=== PATIENT | female | born 1950 | race Caucasian/White ===

== ENCOUNTER → 2016-03-04 | Outpatient (CLI) | payer MEDICARE, MEDICAID ==
[~2016-03-04] MED LIST: ACHD5005 PO; ALBU8.5H2 IH; AMIT25TA9 PO; ASPI-586 PO; DARI7.5T8 PO; FURO80TA3 PO; HYDR-34 PO; KCL10CCR PO; LIRA0.6P SQ; LORA10TA7 PO; LOVA40TA2 PO; MELO-195 PO; METF-380 PO; NF-TRA/ACE PO; OXYB5TAB PO; POTA10TA10 PO; QUIN20TA15 PO; RIZA10TA20 PO; ROPI1TAB PO; ROPI1TAB40 PO; RT-ADVAIR1 IH; TOPI50TA2 PO; TPR100T PO
== END ==
LOC: PREOP 05:44
PROVIDERS: ATTEND Surgery
DX: Z01.818 Encounter for other preprocedural examination (principal); Z12.11 Encounter for screening for malignant neoplasm of colon

== ENCOUNTER → 2016-03-15 | Outpatient (CLI) | payer MEDICARE, MEDICAID | LOC: PREOP 10:35 | PROVIDERS: ATTEND Surgery | DX: Z01.818 Encounter for other preprocedural examination (principal); Z12.11 Encounter for screening for malignant neoplasm of colon ==

== ENCOUNTER 2016-03-16 09:01 | Day surgery (SDC) | payer MEDICARE, MEDICAID ==
[~2016-03-16] VITALS: Ht 149.9 cm; Wt 93.0 kg
[2016-03-16] MEDS ORDERED: proPOfol 200 MG/20 ML (DIPRIVAN) VIAL IV ONE (09:33)
[2016-03-16] MEDS ORDERED: MIDAZOLAM 2 MG/2 ML (VERSED) VIAL ONE (09:33)
[2016-03-16] MEDS ORDERED: NS IV 1000 ML 1,000 ML ONE (09:37)
--- NOTE | 2016-03-16 09:48 | Progress Note-Pre Operative ---
Pre-Operative Progress Note H&P Reviewed The H&P was reviewed, patient examined and no changes noted. Date H&P Reviewed: Mar 16, 2016 Time H&P Reviewed: 09:48 Pre-Operative Diagnosis: family history colon cancer ELVA HINOJOSA DO Mar 16, 2016 09:48
[2016-03-16] MEDS ORDERED: NS IV 1000 ML 1,000 ML IV STA (10:00)
[2016-03-16 10:14] VITALS: BP 124/79
--- NOTE | 2016-03-16 10:39 | Discharge Inst-Simple/Standard ---
Discharge Inst-Standard Patient Instructions/Follow Up Plan of Care/Instructions/FU: Follow up with Dr. Porras as needed Repeat colonoscopy in 5 years or sooner if condition changes Activity as Tolerated: Yes Discharge Diet: No Restrictions JANET RODRIGUEZ APRN Mar 16, 2016 10:39
--- NOTE | 2016-03-16 10:40 | Progress Note-Post Operative ---
Post-Operative Progess Note Pre-Operative Diagnosis family history colon cancer Post-Operative Diagnosis normal colon Post-Op Procedure Note Date of Procedure: Mar 16, 2016 Name of Procedure: colonoscopy Procedure Note/Findings see note Anesthesia Type per quality improvement manager Estimated blood loss (mL): none Specimen(s) collected none ELVA HINOJOSA DO Mar 16, 2016 10:40
[2016-03-16 11:00] VITALS: BP 132/81
[2016-03-16 11:25] VITALS: BP 122/72
[2016-03-16 11:45] VITALS: BP 122/72
--- NOTE | 2016-03-17 10:52 | OPERATIVE REPORT ---
PROCEDURE PHYSICIAN: ELVA HINOJOSA DATE OF PROCEDURE: 03/16/2016 PREOPERATIVE DIAGNOSIS: Family history of colon cancer. POSTOPERATIVE DIAGNOSIS: Normal colon. PROCEDURE: Colonoscopy. SURGEON: Vern. ANESTHESIA: Per MACHINE ASSISTANT. ESTIMATED BLOOD LOSS: None. COMPLICATIONS: None. INDICATIONS: The patient is a 65-year-old female with family history of colon cancer. She understands the risks and benefits of the procedure and wished to proceed with the procedure. Consent was signed on the chart. PROCEDURE: The patient taken endoscopy suite, placed in left lateral recumbent position. Timeout was performed. Digital rectal exam was performed. There were no palpable polyps, masses or ulcerations. The scope was inserted in the rectum and advanced all way cecum with minimal difficulty. Prep was adequate. The scope was then slowly retracted back. There were no polyps, masses or ulcerations within the cecum, ascending, transverse, descending and sigmoid colon. The scope was continued be slowly retracted back into the rectum where it was also retroflexed noting no further pathology. The scope was returned to its normal position slowly withdrawn until completely removed noting no further pathology. The patient tolerated the procedure well without complication. She was taken to recovery room in stable condition. RECOMMENDATIONS: The patient will need repeat colonoscopy in 5 years due to family history of colon cancer. The patient if has any problems prior to that should be reevaluated at that time. Job ID: [id number] Dictated Date: 03/16/2016 10:42:06 Waste Reclaimer Date: 03/17/2016 10:48:58 / laine
== END 2016-03-16 11:50 | disposition home or self-care (01) ==
LOC: SDC 09:01
PROVIDERS: ATTEND Surgery
DX: Z12.11 Encounter for screening for malignant neoplasm of colon (principal); Z80.0 Family history of malignant neoplasm of digestive organs; E11.9 Type 2 diabetes mellitus without complications; Z79.84 Long term (current) use of oral hypoglycemic drugs
CPT/HCPCS: G0121; 82962

== ENCOUNTER → 2016-03-29 | Outpatient (CLI) | payer MEDICARE, MEDICAID ==
--- OUTSIDE RECORDS SUMMARY | 2016-03-29 12:26 | XMS REPORT | Continuity of Care Document ---
Author Author [facility] Address Unknown Phone Unavailable Allergies Active Description Code Type Severity Reaction Onset Reported/Identified Relationship to Patient Clinical Status Yes Norvasc 5 mg tablet Drug Allergy 04/05/2011 Yes Norvasc 5 mg tablet Drug Allergy N/A N/A 04/05/2011 Yes No Known Drug Allergies [id number] Drug Allergy Unknown N/ A 03/16/2016 Medications Problems Date Dx Coded Attending Type Code Diagnosis Diagnosed By 08/30/2007 HAMZAH KENT APRN 250.02 DIABETES MELLITUS POORLY CONTROLLED 08/30/2007 HAMZAH KENT APRN 789.00 COLIC INFANTILE 08/30/2007 HAMZAH KENT APRN 250.02 DIABETES MELLITUS POORLY CONTROLLED 08/30/2007 HAMZAH KENT APRN 789.00 COLIC INFANTILE 08/30/2007 250.02 DIABETES MELLITUS POORLY CONTROLLED 08/30/2007 789.00 COLIC INFANTILE 08/30/2007 250.02 DIABETES MELLITUS POORLY CONTROLLED 08/30/2007 789.00 COLIC INFANTILE 08/30/2007 250.02 DIABETES MELLITUS POORLY CONTROLLED 08/30/2007 789.00 COLIC INFANTILE 08/30/2007 ANIL CALL APRN 250.02 DIABETES MELLITUS POORLY CONTROLLED 08/30/2007 ANIL CALL APRN 789.00 COLIC INFANTILE 08/30/2007 HAMZAH KENT APRN 250.02 DIABETES MELLITUS POORLY CONTROLLED 08/30/2007 AHMZAH KENT APRN 789.00 COLIC INFANTILE 08/30/2007 ARIC SAEED MD 250.02 DIABETES MELLITUS POORLY CONTROLLED 08/30/2007 ARIC SAEED MD 789.00 COLIC INFANTILE 08/30/2007 250.02 DIABETES MELLITUS POORLY CONTROLLED 08/30/2007 789.00 COLIC INFANTILE 08/30/2007 250.02 DIABETES MELLITUS POORLY CONTROLLED 08/30/2007 789.00 COLIC INFANTILE 08/30/2007 250.02 DIABETES MELLITUS POORLY CONTROLLED 08/30/2007 789.00 COLIC INFANTILE 08/30/2007 250.02 DIABETES MELLITUS POORLY CONTROLLED 08/30/2007 789.00 COLIC INFANTILE 08/30/2007 250.02 DIABETES MELLITUS POORLY CONTROLLED 08/30/2007 789.00 COLIC INFANTILE 08/30/2007 AVELINA KENT APRNA S 250.02 DIABETES MELLITUS POORLY CONTROLLED 08/30/2007 AVELINA KENT APRNA S 789.00 COLIC INFANTILE 08/30/2007 AVELINA KENT APRNA S 250.02 DIABETES MELLITUS POORLY CONTROLLED 08/30/2007 AVELINA KENT APRNA S 789.00 COLIC INFANTILE 08/30/2007 AVELINA KENT APRNA S 250.02 DIABETES MELLITUS POORLY CONTROLLED 08/30/2007 AVELINA KENT APRNA S 789.00 COLIC INFANTILE 08/30/2007 ARIC SAEED MD 250.02 DIABETES MELLITUS POORLY CONTROLLED 08/30/2007 ARIC SAEED MD 789.00 COLIC INFANTILE 08/30/2007 ONEYDA ZAVALA ANIL MCCOYH 250.02 DIABETES MELLITUS POORLY CONTROLLED 08/30/2007 ONEYDA ZAVALA ANIL GOMEZ 789.00 COLIC INFANTILE 08/30/2007 AVELINA KENT APRNA S 250.02 DIABETES MELLITUS POORLY CONTROLLED 08/30/2007 AVELINA KENT APRNA S 789.00 COLIC INFANTILE 08/30/2007 AVELINA KENT APRNA S 250.02 DIABETES MELLITUS POORLY CONTROLLED 08/30/2007 AVELINA KENT APRNA S 789.00 COLIC INFANTILE 08/30/2007 AVELINA KENT APRNA S 250.02 DIABETES MELLITUS POORLY CONTROLLED 08/30/2007 JONELLE KENT APRNNDA S 789.00 COLIC INFANTILE 08/30/2007 AVELINA KENT APRNA S 250.02 DIABETES MELLITUS POORLY CONTROLLED 08/30/2007 AVELINA KENT APRNA S 789.00 COLIC INFANTILE 08/30/2007 BALTAZAR MCKEON APRN 250.02 DIABETES MELLITUS POORLY CONTROLLED 08/30/2007 BALTAZAR MCKEON APRN 789.00 COLIC INFANTILE 08/30/2007 BALTAZAR MCKEON APRN 250.02 DIABETES MELLITUS POORLY CONTROLLED 08/30/2007 JAYLENE MCKEON APRNETTE 789.00 COLIC INFANTILE 08/30/2007 JONELLE KENT APRNNDA S 250.02 DIABETES MELLITUS POORLY CONTROLLED 08/30/2007 YOLI ZAVALA HAMZAH S 789.00 COLIC INFANTILE 08/30/2007 YOLI ZAVALA HAMZAH S 250.02 DIABETES MELLITUS POORLY CONTROLLED 08/30/2007 YOLI ZAVALA HAMZAH S 789.00 COLIC INFANTILE 03/04/2008 JONELLE KENT APRNNDA S 250.00 DIABETES MELLITUS TYPE 2 03/04/2008 JONELLE KENT APRNNDA S 272.1 HYPERLIPOPROTEINEMIA TYPE IV 03/04/2008 JONELLE KENT APRNNDA S 250.00 DIABETES MELLITUS TYPE 2 03/04/2008 JONELLE KENT APRNNDA S 272.1 HYPERLIPOPROTEINEMIA TYPE IV 03/04/2008 250.00 DIABETES MELLITUS TYPE 2 03/04/2008 272.1 HYPERLIPOPROTEINEMIA TYPE IV 03/04/2008 250.00 DIABETES MELLITUS TYPE 2 03/04/2008 272.1 HYPERLIPOPROTEINEMIA TYPE IV 03/04/2008 250.00 DIABETES MELLITUS TYPE 2 03/04/2008 272.1 HYPERLIPOPROTEINEMIA TYPE IV 03/04/2008 ANIL CALL APRN 250.00 DIABETES MELLITUS TYPE 2 03/04/2008 ANIL CALL APRN 272.1 HYPERLIPOPROTEINEMIA TYPE IV 03/04/2008 JONELLE KENT APRNNDA S 250.00 DIABETES MELLITUS TYPE 2 03/04/2008 JONELLE KENT APRNNDA S 272.1 HYPERLIPOPROTEINEMIA TYPE IV 03/04/2008 ARIC SAEED MD 250.00 DIABETES MELLITUS TYPE 2 03/04/2008 ARIC SAEED MD 272.1 HYPERLIPOPROTEINEMIA TYPE IV 03/04/2008 250.00 DIABETES MELLITUS TYPE 2 03/04/2008 272.1 HYPERLIPOPROTEINEMIA TYPE IV 03/04/2008 250.00 DIABETES MELLITUS TYPE 2 03/04/2008 272.1 HYPERLIPOPROTEINEMIA TYPE IV 03/04/2008 250.00 DIABETES MELLITUS TYPE 2 03/04/2008 272.1 HYPERLIPOPROTEINEMIA TYPE IV 03/04/2008 250.00 DIABETES MELLITUS TYPE 2 03/04/2008 272.1 HYPERLIPOPROTEINEMIA TYPE IV 03/04/2008 250.00 DIABETES MELLITUS TYPE 2 03/04/2008 272.1 HYPERLIPOPROTEINEMIA TYPE IV 03/04/2008 YOLI IVEYN, HAMZAH S 250.00 DIABETES MELLITUS TYPE 2 03/04/2008 YOLI IVEYN, HAMZAH S 272.1 HYPERLIPOPROTEINEMIA TYPE IV 03/04/2008 YOLI IVEYN, HAMZAH S 250.00 DIABETES MELLITUS TYPE 2 03/04/2008 YOLI IVEYN, HAMZAH S 272.1 HYPERLIPOPROTEINEMIA TYPE IV 03/04/2008 YOLI ZAVALA, HAMZAH S 250.00 DIABETES MELLITUS TYPE 2 03/04/2008 YOLI ZAVALA, HAMZAH S 272.1 HYPERLIPOPROTEINEMIA TYPE IV 03/04/2008 ARIC SAEED MD 250.00 DIABETES MELLITUS TYPE 2 03/04/2008 ARIC SAEED MD 272.1 HYPERLIPOPROTEINEMIA TYPE IV 03/04/2008 ONEYDA ZAVALA ANIL PATRICIA 250.00 DIABETES MELLITUS TYPE 2 03/04/2008 ANIL CALL APRN 272.1 HYPERLIPOPROTEINEMIA TYPE IV 03/04/2008 YOLI ZAVALA, HAMZAH S 250.00 DIABETES MELLITUS TYPE 2 03/04/2008 YOLI ZAVALA, HAMZAH S 272.1 HYPERLIPOPROTEINEMIA TYPE IV 03/04/2008 YOLI ZAVALA, HAMZAH S 250.00 DIABETES MELLITUS TYPE 2 03/04/2008 YOLI ZAVALA, HAMZAH S 272.1 HYPERLIPOPROTEINEMIA TYPE IV 03/04/2008 YOLI IVEYN, HAMZAH S 250.00 DIABETES MELLITUS TYPE 2 03/04/2008 YOLI ZAVALA, HAMZAH S 272.1 HYPERLIPOPROTEINEMIA TYPE IV 03/04/2008 YOLI ZAVALA, HAMZAH S 250.00 DIABETES MELLITUS TYPE 2 03/04/2008 YOLI ZAVALA, HAMZAH S 272.1 HYPERLIPOPROTEINEMIA TYPE IV 03/04/2008 LINDA ZAVALA BALTAZAR 250.00 DIABETES MELLITUS TYPE 2 03/04/2008 BALTAZAR MCKEON APRN 272.1 HYPERLIPOPROTEINEMIA TYPE IV 03/04/2008 LINDA ZAVALA, BALTAZAR 250.00 DIABETES MELLITUS TYPE 2 03/04/2008 LINDA PIPE STRIPPER, BALTAZAR 272.1 HYPERLIPOPROTEINEMIA TYPE IV 03/04/2008 YOLI ZAVALA, HAMZAH S 250.00 DIABETES MELLITUS TYPE 2 03/04/2008 YOLI ZAVALA, HAMZAH S 272.1 HYPERLIPOPROTEINEMIA TYPE IV 03/04/2008 YOLI ZAVALA, HAMZAH S 250.00 DIABETES MELLITUS TYPE 2 03/04/2008 YOLI ZAVALA, HAMZAH S 272.1 HYPERLIPOPROTEINEMIA TYPE IV 06/06/2008 JONELLE KENT APRNNDA S 278.01 OBESITY MORBID 06/06/2008 AVELINA KENT APRNA S 782.3 DEPENDENT EDEMA DUE TO INACTIVITY 06/06/2008 JONELLE KENT APRNNDA S 278.01 OBESITY MORBID 06/06/2008 JONELLE KENT APRNNDA S 782.3 DEPENDENT EDEMA DUE TO INACTIVITY 06/06/2008 278.01 OBESITY MORBID 06/06/2008 782.3 DEPENDENT EDEMA DUE TO INACTIVITY 06/06/2008 278.01 OBESITY MORBID 06/06/2008 782.3 DEPENDENT EDEMA DUE TO INACTIVITY 06/06/2008 278.01 OBESITY MORBID 06/06/2008 782.3 DEPENDENT EDEMA DUE TO INACTIVITY 06/06/2008 ONEYDA ZAVALA ANIL MCCOYH 278.01 OBESITY MORBID 06/06/2008 ONEYDA ZAVALA ANIL GOMEZ 782.3 DEPENDENT EDEMA DUE TO INACTIVITY 06/06/2008 AVELINA KENT APRNA S 278.01 OBESITY MORBID 06/06/2008 AVELINA KENT APRNA S 782.3 DEPENDENT EDEMA DUE TO INACTIVITY 06/06/2008 ARIC SAEED MD 278.01 OBESITY MORBID 06/06/2008 ARIC SAEED MD 782.3 DEPENDENT EDEMA DUE TO INACTIVITY 06/06/2008 278.01 OBESITY MORBID 06/06/2008 782.3 DEPENDENT EDEMA DUE TO INACTIVITY 06/06/2008 278.01 OBESITY MORBID 06/06/2008 782.3 DEPENDENT EDEMA DUE TO INACTIVITY 06/06/2008 278.01 OBESITY MORBID 06/06/2008 782.3 DEPENDENT EDEMA DUE TO INACTIVITY 06/06/2008 278.01 OBESITY MORBID 06/06/2008 782.3 DEPENDENT EDEMA DUE TO INACTIVITY 06/06/2008 278.01 OBESITY MORBID 06/06/2008 782.3 DEPENDENT EDEMA DUE TO INACTIVITY 06/06/2008 JONELLE KENT APRNNDA S 278.01 OBESITY MORBID 06/06/2008 YOLI ZAVALA, HAMZAH S 782.3 DEPENDENT EDEMA DUE TO INACTIVITY 06/06/2008 JONELLE KENT APRNNDA S 278.01 OBESITY MORBID 06/06/2008 JONELLE EKNT APRNNDA S 782.3 DEPENDENT EDEMA DUE TO INACTIVITY 06/06/2008 JONELLE KENT APRNNDA S 278.01 OBESITY MORBID 06/06/2008 JONELLE KENT APRNNDA S 782.3 DEPENDENT EDEMA DUE TO INACTIVITY 06/06/2008 ARIC SAEED MD 278.01 OBESITY MORBID 06/06/2008 ARIC SAEED MD 782.3 DEPENDENT EDEMA DUE TO INACTIVITY 06/06/2008 ANIL CALL APRN 278.01 OBESITY MORBID 06/06/2008 ANIL CALL APRN 782.3 DEPENDENT EDEMA DUE TO INACTIVITY 06/06/2008 JONELLE KENT APRNNDA S 278.01 OBESITY MORBID 06/06/2008 JONELLE KENT APRNNDA S 782.3 DEPENDENT EDEMA DUE TO INACTIVITY 06/06/2008 JONELLE KENT APRNNDA S 278.01 OBESITY MORBID 06/06/2008 JONELLE KENT APRNNDA S 782.3 DEPENDENT EDEMA DUE TO INACTIVITY 06/06/2008 JONELLE KENT APRNNDA S 278.01 OBESITY MORBID 06/06/2008 JONELLE KENT APRNNDA S 782.3 DEPENDENT EDEMA DUE TO INACTIVITY 06/06/2008 JONELLE KENT APRNNDA S 278.01 OBESITY MORBID 06/06/2008 YOLI ZAVALA HAMZAH S 782.3 DEPENDENT EDEMA DUE TO INACTIVITY 06/06/2008 LINDA PIPE STRIPPER, BALTAZAR 278.01 OBESITY MORBID 06/06/2008 LINDA PIPE STRIPPER, BALTAZAR 782.3 DEPENDENT EDEMA DUE TO INACTIVITY 06/06/2008 LINDA PIPE STRIPPER, BALTAZAR 278.01 OBESITY MORBID 06/06/2008 LINDA PIPE STRIPPER, BALTAZAR 782.3 DEPENDENT EDEMA DUE TO INACTIVITY 06/06/2008 YOLI PIPE STRIPPER, HAMZAH S 278.01 OBESITY MORBID 06/06/2008 YOLI PIPE STRIPPER, HAMZAH S 782.3 DEPENDENT EDEMA DUE TO INACTIVITY 06/06/2008 YOLI PIPE STRIPPER, HAMZAH S 278.01 OBESITY MORBID 06/06/2008 YOLI PIPE STRIPPER, HAMZAH S 782.3 DEPENDENT EDEMA DUE TO INACTIVITY 09/12/2008 YOLI PIPE STRIPPER, HAMZAH S 401.9 ESSENTIAL HYPERTENSION 09/12/2008 YOLI PIPE STRIPPER, HAMZAH S 401.9 ESSENTIAL HYPERTENSION 09/12/2008 401.9 ESSENTIAL HYPERTENSION 09/12/2008 401.9 ESSENTIAL HYPERTENSION 09/12/2008 401.9 ESSENTIAL HYPERTENSION 09/12/2008 ANIL CALL APRN 401.9 ESSENTIAL HYPERTENSION 09/12/2008 YOLI PIPE STRIPPER, HAMZAH S 401.9 ESSENTIAL HYPERTENSION 09/12/2008 ARIC SAEED MD 401.9 ESSENTIAL HYPERTENSION 09/12/2008 401.9 ESSENTIAL HYPERTENSION 09/12/2008 401.9 ESSENTIAL HYPERTENSION 09/12/2008 401.9 ESSENTIAL HYPERTENSION 09/12/2008 401.9 ESSENTIAL HYPERTENSION 09/12/2008 401.9 ESSENTIAL HYPERTENSION 09/12/2008 YOLI PIPE STRIPPER, HAMZAH S 401.9 ESSENTIAL HYPERTENSION 09/12/2008 YOLI PIPE STRIPPER, HAMZAH S 401.9 ESSENTIAL HYPERTENSION 09/12/2008 YOLI PIPE STRIPPER, HAMZAH S 401.9 ESSENTIAL HYPERTENSION 09/12/2008 ARIC SAEED MD 401.9 ESSENTIAL HYPERTENSION 09/12/2008 ANIL CALL APRN 401.9 ESSENTIAL HYPERTENSION 09/12/2008 YOLI PIPE STRIPPER, HAMZAH S 401.9 ESSENTIAL HYPERTENSION 09/12/2008 YOLI PIPE STRIPPER, HAMZAH S 401.9 ESSENTIAL HYPERTENSION 09/12/2008 YOLI PIPE STRIPPER, HAMZAH S 401.9 ESSENTIAL HYPERTENSION 09/12/2008 YOLI PIPE STRIPPER, HAMZAH S 401.9 ESSENTIAL HYPERTENSION 09/12/2008 LINDA PIPE STRIPPER, BALTAZAR 401.9 ESSENTIAL HYPERTENSION 09/12/2008 LINDA PIPE STRIPPER, BALTAZAR 401.9 ESSENTIAL HYPERTENSION 09/12/2008 YOLI PIPE STRIPPER, HAMZAH S 401.9 ESSENTIAL HYPERTENSION 09/12/2008 YOLI PIPE STRIPPER, HAMZAH S 401.9 ESSENTIAL HYPERTENSION 12/17/2008 YOLI PIPE STRIPPER, HAMZAH S V04.81 Vaccines Prophylactic Need Against Influenza 12/17/2008 YOLI PIPE STRIPPER, HAMZAH S V04.81 Vaccines Prophylactic Need Against Influenza 12/17/2008 V04.81 Vaccines Prophylactic Need Against Influenza 12/17/2008 V04.81 Vaccines Prophylactic Need Against Influenza 12/17/2008 V04.81 Vaccines Prophylactic Need Against Influenza 12/17/2008 ONEYDA ZAVALA ANIL PATRICIA V04.81 Vaccines Prophylactic Need Against Influenza 12/17/2008 YOLI PIPE STRIPPER, HAMZAH S V04.81 Vaccines Prophylactic Need Against Influenza 12/17/2008 ARIC SAEED MD V04.81 Vaccines Prophylactic Need Against Influenza 12/17/2008 V04.81 Vaccines Prophylactic Need Against Influenza 12/17/2008 V04.81 Vaccines Prophylactic Need Against Influenza 12/17/2008 V04.81 Vaccines Prophylactic Need Against Influenza 12/17/2008 V04.81 Vaccines Prophylactic Need Against Influenza 12/17/2008 V04.81 Vaccines Prophylactic Need Against Influenza 12/17/2008 YOLI PIPE STRIPPER, HAMZAH S V04.81 Vaccines Prophylactic Need Against Influenza 12/17/2008 YOLI PIPE STRIPPER, HAMZAH S V04.81 Vaccines Prophylactic Need Against Influenza 12/17/2008 YOLI PIPE STRIPPER, HAMZAH S V04.81 Vaccines Prophylactic Need Against Influenza 12/17/2008 ARIC SAEED MD V04.81 Vaccines Prophylactic Need Against Influenza 12/17/2008 ANIL CALL APRN V04.81 Vaccines Prophylactic Need Against Influenza 12/17/2008 YOLI PIPE STRIPPER, HAMZAH S V04.81 VACCINES PROPHYLACTIC NEED AGAINST INFLUENZA 12/17/2008 YOLI PIPE STRIPPER, HAMZAH S V04.81 VACCINES PROPHYLACTIC NEED AGAINST INFLUENZA 12/17/2008 YOLI PIPE STRIPPER, HAMZAH S V04.81 VACCINES PROPHYLACTIC NEED AGAINST INFLUENZA 12/17/2008 YOLI PIPE STRIPPER, HAMZAH S V04.81 VACCINES PROPHYLACTIC NEED AGAINST INFLUENZA 12/17/2008 LINDA PIPE STRIPPER, BALTAZAR V04.81 VACCINES PROPHYLACTIC NEED AGAINST INFLUENZA 12/17/2008 LINDA PIPE STRIPPER, BALTAZAR V04.81 VACCINES PROPHYLACTIC NEED AGAINST INFLUENZA 12/17/2008 YOLI PIPE STRIPPER, HAMZAH S V04.81 VACCINES PROPHYLACTIC NEED AGAINST INFLUENZA 12/17/2008 YOLI ZAVALA, HAMZAH S V04.81 VACCINES PROPHYLACTIC NEED AGAINST INFLUENZA 03/19/2009 YOLI ZAVALA, HAMZAH S 459.81 VENOUS INSUFFICIENCY 03/19/2009 YOLI PIPE STRIPPER, HAMZAH S 709.9 SKIN LESIONS 03/19/2009 YOLI ZAVALA, HAMZAH S 780.50 SLEEP DISTURBANCE, UNSPECIFIED 03/19/2009 JONELLE KENT APRNNDA S 459.81 VENOUS INSUFFICIENCY 03/19/2009 YOLI ZAVALA, HAMZAH S 709.9 SKIN LESIONS 03/19/2009 YOLI ZAVALA, HAMZAH S 780.50 SLEEP DISTURBANCE, UNSPECIFIED 03/19/2009 459.81 VENOUS INSUFFICIENCY 03/19/2009 709.9 SKIN LESIONS 03/19/2009 780.50 SLEEP DISTURBANCE, UNSPECIFIED 03/19/2009 459.81 VENOUS INSUFFICIENCY 03/19/2009 709.9 SKIN LESIONS 03/19/2009 780.50 SLEEP DISTURBANCE, UNSPECIFIED 03/19/2009 459.81 VENOUS INSUFFICIENCY 03/19/2009 709.9 SKIN LESIONS 03/19/2009 780.50 SLEEP DISTURBANCE, UNSPECIFIED 03/19/2009 ONEYDA ZAVALA ANIL GOMEZ 459.81 VENOUS INSUFFICIENCY 03/19/2009 ONEYDA ZAVALA, ANIL GOMEZ 709.9 SKIN LESIONS 03/19/2009 ONEYDA ZAVALAANIL 780.50 SLEEP DISTURBANCE, UNSPECIFIED 03/19/2009 JONELLE KENT APRNNDA S 459.81 VENOUS INSUFFICIENCY 03/19/2009 JONELLE KENT APRNNDA S 709.9 SKIN LESIONS 03/19/2009 JONELLE KENT APRNNDA S 780.50 SLEEP DISTURBANCE, UNSPECIFIED 03/19/2009 ARIC SAEED MD 459.81 VENOUS INSUFFICIENCY 03/19/2009 ARIC SAEED MD 709.9 SKIN LESIONS 03/19/2009 ARIC SAEED MD 780.50 SLEEP DISTURBANCE, UNSPECIFIED 03/19/2009 459.81 VENOUS INSUFFICIENCY 03/19/2009 709.9 SKIN LESIONS 03/19/2009 780.50 SLEEP DISTURBANCE, UNSPECIFIED 03/19/2009 459.81 VENOUS INSUFFICIENCY 03/19/2009 709.9 SKIN LESIONS 03/19/2009 780.50 SLEEP DISTURBANCE, UNSPECIFIED 03/19/2009 459.81 VENOUS INSUFFICIENCY 03/19/2009 709.9 SKIN LESIONS 03/19/2009 780.50 SLEEP DISTURBANCE, UNSPECIFIED 03/19/2009 459.81 VENOUS INSUFFICIENCY 03/19/2009 709.9 SKIN LESIONS 03/19/2009 780.50 SLEEP DISTURBANCE, UNSPECIFIED 03/19/2009 459.81 VENOUS INSUFFICIENCY 03/19/2009 709.9 SKIN LESIONS 03/19/2009 780.50 SLEEP DISTURBANCE, UNSPECIFIED 03/19/2009 YOLI PIPE STRIPPER, HAMZAH S 459.81 VENOUS INSUFFICIENCY 03/19/2009 YOLI PIPE STRIPPER, HAMZAH S 709.9 SKIN LESIONS 03/19/2009 YOLI PIPE STRIPPER, HAMZAH S 780.50 SLEEP DISTURBANCE, UNSPECIFIED 03/19/2009 YOLI PIPE STRIPPER, HAMZAH S 459.81 VENOUS INSUFFICIENCY 03/19/2009 YOLI PIPE STRIPPER, HAMZAH S 709.9 SKIN LESIONS 03/19/2009 YOLI PIPE STRIPPER, HAMZAH S 780.50 SLEEP DISTURBANCE, UNSPECIFIED 03/19/2009 YOLI PIPE STRIPPER, HAMZAH S 459.81 VENOUS INSUFFICIENCY 03/19/2009 YOLI PIPE STRIPPER, HAMZAH S 709.9 SKIN LESIONS 03/19/2009 YOLI PIPE STRIPPER, HAMZAH S 780.50 SLEEP DISTURBANCE, UNSPECIFIED 03/19/2009 ARIC SAEED MD 459.81 VENOUS INSUFFICIENCY 03/19/2009 ARIC SAEED MD 709.9 SKIN LESIONS 03/19/2009 ARIC SAEED MD 780.50 SLEEP DISTURBANCE, UNSPECIFIED 03/19/2009 ANIL CALL APRN 459.81 VENOUS INSUFFICIENCY 03/19/2009 ONEYDA PIPE STRIPPERANIL Arita 709.9 SKIN LESIONS 03/19/2009 ONEYDA ZAVALA, ANIL PATRICIA 780.50 SLEEP DISTURBANCE, UNSPECIFIED 03/19/2009 YOLI PIPE STRIPPER, HAMZAH S 459.81 VENOUS INSUFFICIENCY 03/19/2009 YOLI PIPE STRIPPER, HAMZAH S 709.9 SKIN LESIONS 03/19/2009 YOLI ZAVALA, HAMZAH S 780.50 SLEEP DISTURBANCE, UNSPECIFIED 03/19/2009 YOLI PIPE STRIPPER, HAMZAH S 459.81 VENOUS INSUFFICIENCY 03/19/2009 YOLI PIPE STRIPPER, HAMZAH S 709.9 SKIN LESIONS 03/19/2009 YOLI PIPE STRIPPER, HAMZAH S 780.50 SLEEP DISTURBANCE, UNSPECIFIED 03/19/2009 YOLI PIPE STRIPPER, HAMZAH S 459.81 VENOUS INSUFFICIENCY 03/19/2009 YOLI PIPE STRIPPER, HAMZAH S 709.9 SKIN LESIONS 03/19/2009 YOLI PIPE STRIPPER, HAMZAH S 780.50 SLEEP DISTURBANCE, UNSPECIFIED 03/19/2009 YOLI PIPE STRIPPER, HAMZAH S 459.81 VENOUS INSUFFICIENCY 03/19/2009 YOLI PIPE STRIPPER, HAMZAH S 709.9 SKIN LESIONS 03/19/2009 YOLI PIPE STRIPPER, HAMZAH S 780.50 SLEEP DISTURBANCE, UNSPECIFIED 03/19/2009 LINDA PIPE STRIPPER, BALTAZAR 459.81 VENOUS INSUFFICIENCY 03/19/2009 LINDA PIPE STRIPPER, BALTAZAR 709.9 SKIN LESIONS 03/19/2009 LINDA PIPE STRIPPER, BALTAZAR 780.50 SLEEP DISTURBANCE, UNSPECIFIED 03/19/2009 LINDA PIPE STRIPPER, BALTAZAR 459.81 VENOUS INSUFFICIENCY 03/19/2009 LINDA PIPE STRIPPER, BALTAZAR 709.9 SKIN LESIONS 03/19/2009 LINDA PIPE STRIPPER, BALTAZAR 780.50 SLEEP DISTURBANCE, UNSPECIFIED 03/19/2009 YOLI PIPE STRIPPER, HAMZAH S 459.81 VENOUS INSUFFICIENCY 03/19/2009 YOLI PIPE STRIPPER, HAMZAH S 709.9 SKIN LESIONS 03/19/2009 YOLI PIPE STRIPPER, HAMZAH S 780.50 SLEEP DISTURBANCE, UNSPECIFIED 03/19/2009 YOLI PIPE STRIPPER, HAMZAH S 459.81 VENOUS INSUFFICIENCY 03/19/2009 YOLI PIPE STRIPPER, HAMZAH S 709.9 SKIN LESIONS 03/19/2009 YOLI PIPE STRIPPER, HAMZAH S 780.50 SLEEP DISTURBANCE, UNSPECIFIED 04/10/2009 YOLI PIPE STRIPPER, HAMZAH S 466.0 ACUTE BRONCHITIS 04/10/2009 YOLI PIPE STRIPPER, HAMZAH S 466.0 ACUTE BRONCHITIS 04/10/2009 466.0 ACUTE BRONCHITIS 04/10/2009 466.0 ACUTE BRONCHITIS 04/10/2009 466.0 ACUTE BRONCHITIS 04/10/2009 CALL PIPE STRIPPER, ANIL GOMEZ 466.0 ACUTE BRONCHITIS 04/10/2009 YOLI PIPE STRIPPER, HAMZAH S 466.0 ACUTE BRONCHITIS 04/10/2009 DARLIN ANDERSON, ARIC 466.0 ACUTE BRONCHITIS 04/10/2009 466.0 ACUTE BRONCHITIS 04/10/2009 466.0 ACUTE BRONCHITIS 04/10/2009 466.0 ACUTE BRONCHITIS 04/10/2009 466.0 ACUTE BRONCHITIS 04/10/2009 466.0 ACUTE BRONCHITIS 04/10/2009 YOLI PIPE STRIPPER, HAMZAH S 466.0 ACUTE BRONCHITIS 04/10/2009 YOLI PIPE STRIPPER, HAMZAH S 466.0 ACUTE BRONCHITIS 04/10/2009 YOLI PIPE STRIPPER, HAMZAH S 466.0 ACUTE BRONCHITIS 04/10/2009 DARLIN ANDERSON, ARIC 466.0 ACUTE BRONCHITIS 04/10/2009 ONEYDA PIPE STRIPPER, ANIL GOMEZ 466.0 ACUTE BRONCHITIS 04/10/2009 YOLI PIPE STRIPPER, HAMZAH S 466.0 ACUTE BRONCHITIS 04/10/2009 YOLI PIPE STRIPPER, HAMZAH S 466.0 ACUTE BRONCHITIS 04/10/2009 YOLI PIPE STRIPPER, HAMZAH S 466.0 ACUTE BRONCHITIS 04/10/2009 YOLI PIPE STRIPPER, HAMZAH S 466.0 ACUTE BRONCHITIS 04/10/2009 LINDA PIPE STRIPPER, BALTAZAR 466.0 ACUTE BRONCHITIS 04/10/2009 LINDA PIPE STRIPPER, BALTAZAR 466.0 ACUTE BRONCHITIS 04/10/2009 YOLI PIPE STRIPPER, HAMZAH S 466.0 ACUTE BRONCHITIS 04/10/2009 YOLI PIPE STRIPPER, HAMZAH S 466.0 ACUTE BRONCHITIS 08/12/2009 YOLI PIPE STRIPPER, HAMZAH S 919.0 ABRASION UNSPECIFIED 08/12/2009 YOLI PIPE STRIPPER, HAMZAH S V06.1 DTP/Dtap, SJTRHRUDZB-EMUBMED-NEJHDLSIO COMBINED 08/12/2009 YOLI PIPE STRIPPER, HAMZAH S 919.0 ABRASION UNSPECIFIED 08/12/2009 YOLI PIPE STRIPPER, HAMZAH S V06.1 DTP/Dtap, RYTWHTJALZ-CXSZXCG-LPUOXLOCA COMBINED 08/12/2009 919.0 ABRASION UNSPECIFIED 08/12/2009 V06.1 DTP/Dtap, GGIIMWGWOT-HOFJVKD-YTKSUYHGR COMBINED 08/12/2009 919.0 ABRASION UNSPECIFIED 08/12/2009 V06.1 DTP/Dtap, KHWIBURNDC-FPMSQRX-MWABZRKLO COMBINED 08/12/2009 919.0 ABRASION UNSPECIFIED 08/12/2009 V06.1 DTP/Dtap, YTERPRJKJJ-USYDHGB-VBZFZIZSQ COMBINED 08/12/2009 ONEYDA PIPE STRIPPER, ANIL GOMEZ 919.0 ABRASION UNSPECIFIED 08/12/2009 CALL PIPE STRIPPER, ANIL GOMEZ V06.1 DTP/Dtap, DIPHTHERIA-TETANUS- PERTUSSIS COMBINED 08/12/2009 AVELINA KENT APRNA S 919.0 ABRASION UNSPECIFIED 08/12/2009 HAMZAH KENT APRN S V06.1 DTP/Dtap, GVZEODDHZI-JOBQUXS-KGQRETZKT COMBINED 08/12/2009 ARIC SAEED MD 919.0 ABRASION UNSPECIFIED 08/12/2009 ARIC SAEED MD V06.1 DTP/Dtap, ULJLURBKPV-XMQHNSI-QYZXEHNLO COMBINED 08/12/2009 919.0 ABRASION UNSPECIFIED 08/12/2009 V06.1 DTP/Dtap, FPFFWHELIE-ZZPHODS-GBQQIAVLI COMBINED 08/12/2009 919.0 ABRASION UNSPECIFIED 08/12/2009 V06.1 DTP/Dtap, BCSPUSFCIP-EDNMVBG-JLWIJGICJ COMBINED 08/12/2009 919.0 ABRASION UNSPECIFIED 08/12/2009 V06.1 DTP/Dtap, KTWQNMUSZN-AVKUOJO-RVZAWYKCC COMBINED 08/12/2009 919.0 ABRASION UNSPECIFIED 08/12/2009 V06.1 DTP/Dtap, TBPERIXHOV-CCDYITD-XBYRBVVUZ COMBINED 08/12/2009 919.0 ABRASION UNSPECIFIED 08/12/2009 V06.1 DTP/Dtap, SNOFOTAUIZ-BZDSBXJ-QINDLFLKT COMBINED 08/12/2009 HAMZAH KENT APRN S 919.0 ABRASION UNSPECIFIED 08/12/2009 HAMZAH KENT APRN S V06.1 DTP/Dtap, WQIFHKYORV-KZXOKZH-RBWBYMWFF COMBINED 08/12/2009 AVELINA KENT APRNA S 919.0 ABRASION UNSPECIFIED 08/12/2009 YOLI PIPE STRIPPER, HAMZAH S V06.1 DTP/Dtap, SNACNYAHME-PYZPCYW-NNBLBZFCW COMBINED 08/12/2009 YOLI PIPE STRIPPER, HAMZAH S 919.0 ABRASION UNSPECIFIED 08/12/2009 YOLI PIPE STRIPPER, HAMZAH S V06.1 DTP/Dtap, OYZOIDQQYI-AJBNESP-LVFWGHVBY COMBINED 08/12/2009 DARLIN ANDERSON, ARIC 919.0 ABRASION UNSPECIFIED 08/12/2009 DARLIN ANDERSON, ARIC V06.1 DTP/Dtap, BLVQWJRQRD-WKNQEAI-NMWTSCEZD COMBINED 08/12/2009 CALL PIPE STRIPPER, ANIL GOMEZ 919.0 ABRASION UNSPECIFIED 08/12/2009 CALL PIPE STRIPPER, ANIL GOMEZ V06.1 DTP/Dtap, DIPHTHERIA-TETANUS- PERTUSSIS COMBINED 08/12/2009 YOLI PIPE STRIPPER, HAMZAH S 919.0 ABRASION UNSPECIFIED 08/12/2009 YOLI PIPE STRIPPER, HAMZAH S V06.1 DTP/DTAP, TMCXQHSXTZ-MFDFEQV-BLDEFHJNG COMBINED 08/12/2009 YOLI PIPE STRIPPER, HAMZAH S 919.0 ABRASION UNSPECIFIED 08/12/2009 YOLI PIPE STRIPPER, HAMZAH S V06.1 DTP/DTAP, TBYMOVHUUV-TSGXQGZ-XWFCRKFXI COMBINED 08/12/2009 YOLI PIPE STRIPPER, HAMZAH S 919.0 ABRASION UNSPECIFIED 08/12/2009 YOLI PIPE STRIPPER, HAMZAH S V06.1 DTP/DTAP, WCILXQZWNL-QCIZFZK-MDVFHQVBY COMBINED 08/12/2009 YOLI PIPE STRIPPER, HAMZAH S 919.0 ABRASION UNSPECIFIED 08/12/2009 YOLI PIPE STRIPPER, HAMZAH S V06.1 DTP/DTAP, DZDVIMJDLY-WPOIIHH-ODDPBTTOY COMBINED 08/12/2009 LINDA PIPE STRIPPER, BALTAZAR 919.0 ABRASION UNSPECIFIED 08/12/2009 LINDA PIPE STRIPPER, BALTAZAR V06.1 DTP/DTAP, UIHIPMHKHC-ZKUFMDX-RCELYEGOY COMBINED 08/12/2009 LINDA PIPE STRIPPER, BALTAZAR 919.0 ABRASION UNSPECIFIED 08/12/2009 LINDA PIPE STRIPPER, BALTAZAR V06.1 DTP/DTAP, EDZLQAMGLA-NPATNDI-AMKIIAIYH COMBINED 08/12/2009 YOLI SALLY, HAMZAH S 919.0 ABRASION UNSPECIFIED 08/12/2009 JONELLE KENT APRNNDA S V06.1 DTP/DTAP, EXFHGVUWKP-LAUHIYE-GENAWWQXQ COMBINED 08/12/2009 AVELINA KENT APRNA S 919.0 ABRASION UNSPECIFIED 08/12/2009 JONELLE KENT APRNNDA S V06.1 DTP/DTAP, HLRABUKAUU-KXXCQRF-GANEYNZIJ COMBINED 10/16/2009 AVELINA KENT APRNA S 250.60 NEUROPATHY WITH NEUROLOGICAL MANIFESTATIONS TYPE II OR UNSPECIFIED TYPE NOT STATED UNCONTROLLED 10/16/2009 AVELINA KENT APRNA S 724.2 lower back pain 10/16/2009 AVELINA KENT APRNA S 250.60 NEUROPATHY WITH NEUROLOGICAL MANIFESTATIONS TYPE II OR UNSPECIFIED TYPE NOT STATED UNCONTROLLED 10/16/2009 AVELINA KENT APRNA S 724.2 lower back pain 10/16/2009 250.60 NEUROPATHY WITH NEUROLOGICAL MANIFESTATIONS TYPE II OR UNSPECIFIED TYPE NOT STATED UNCONTROLLED 10/16/2009 724.2 lower back pain 10/16/2009 250.60 NEUROPATHY WITH NEUROLOGICAL MANIFESTATIONS TYPE II OR UNSPECIFIED TYPE NOT STATED UNCONTROLLED 10/16/2009 724.2 lower back pain 10/16/2009 250.60 NEUROPATHY WITH NEUROLOGICAL MANIFESTATIONS TYPE II OR UNSPECIFIED TYPE NOT STATED UNCONTROLLED 10/16/2009 724.2 lower back pain 10/16/2009 ANLI CALL APRN 250.60 NEUROPATHY WITH NEUROLOGICAL MANIFESTATIONS TYPE II OR UNSPECIFIED TYPE NOT STATED UNCONTROLLED 10/16/2009 ANIL CALL APRN 724.2 lower back pain 10/16/2009 AVELINA KENT APRNA S 250.60 NEUROPATHY WITH NEUROLOGICAL MANIFESTATIONS TYPE II OR UNSPECIFIED TYPE NOT STATED UNCONTROLLED 10/16/2009 HAMZAH KENT APRN S 724.2 lower back pain 10/16/2009 ARIC SAEED MD 250.60 NEUROPATHY WITH NEUROLOGICAL MANIFESTATIONS TYPE II OR UNSPECIFIED TYPE NOT STATED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 THROMBOCYTOPENIA 12/30/2011 YOLI PIPE STRIPPER, HAMZAH S 285.9 ANEMIA 12/30/2011 YOLI PIPE STRIPPER, HAMZAH S 287.5 THROMBOCYTOPENIA 12/30/2011 285.9 ANEMIA 12/30/2011 287.5 THROMBOCYTOPENIA 12/30/2011 285.9 ANEMIA 12/30/2011 287.5 THROMBOCYTOPENIA 12/30/2011 285.9 ANEMIA 12/30/2011 287.5 THROMBOCYTOPENIA 12/30/2011 CALLTENISHA ZAVALA ANIL MCCOYH 285.9 ANEMIA 12/30/2011 CALL PIPE STRIPPER, ANIL GOMEZ 287.5 THROMBOCYTOPENIA 12/30/2011 YOLI PIPE STRIPPER, HAMZAH S 285.9 ANEMIA 12/30/2011 YOLI IVEYN, HAMZAH S 287.5 THROMBOCYTOPENIA 12/30/2011 ARIC SAEED MD 285.9 ANEMIA 12/30/2011 ARIC SAEED MD 287.5 THROMBOCYTOPENIA 12/30/2011 285.9 ANEMIA 12/30/2011 287.5 THROMBOCYTOPENIA 12/30/2011 285.9 ANEMIA 12/30/2011 287.5 THROMBOCYTOPENIA 12/30/2011 285.9 ANEMIA 12/30/2011 287.5 THROMBOCYTOPENIA 12/30/2011 285.9 ANEMIA 12/30/2011 287.5 THROMBOCYTOPENIA 12/30/2011 285.9 ANEMIA 12/30/2011 287.5 THROMBOCYTOPENIA 12/30/2011 YOLI IVEYN, HAMZAH S 285.9 ANEMIA 12/30/2011 YOLI PIPE STRIPPER, HAMZAH S 287.5 THROMBOCYTOPENIA 12/30/2011 YOLI IVEYN, HAMZAH S 285.9 ANEMIA 12/30/2011 YOLI PIPE STRIPPER, HAMZAH S 287.5 THROMBOCYTOPENIA 12/30/2011 YOLI PIPE STRIPPER, HAMZAH S 285.9 ANEMIA 12/30/2011 YOLI PIPE STRIPPER, HAMZAH S 287.5 THROMBOCYTOPENIA 12/30/2011 ARIC SAEED MD 285.9 ANEMIA 12/30/2011 ARIC SAEED MD 287.5 THROMBOCYTOPENIA 12/30/2011 ONEYDA ZAVALA ANIL PATRICIA 285.9 ANEMIA 12/30/2011 ONEYDA ZAVALA ANIL PATRICIA 287.5 THROMBOCYTOPENIA 12/30/2011 YOLI ZAVALA, HAMZAH S 285.9 ANEMIA 12/30/2011 YOLI PIPE STRIPPER, HAMZAH S 287.5 THROMBOCYTOPENIA 12/30/2011 YOLI PIPE STRIPPER, HAMZAH S 285.9 ANEMIA 12/30/2011 YOLI PIPE STRIPPER, HAMZAH S 287.5 THROMBOCYTOPENIA 12/30/2011 YOLI PIPE STRIPPER, HAMZAH S 285.9 ANEMIA 12/30/2011 YOLI PIPE STRIPPER, HAMZAH S 287.5 THROMBOCYTOPENIA 12/30/2011 YOLI PIPE STRIPPER, HAMZAH S 285.9 ANEMIA 12/30/2011 YOLI PIPE STRIPPER, HAMZAH S 287.5 THROMBOCYTOPENIA 12/30/2011 LINDA PIPE STRIPPER, BALTAZAR 285.9 ANEMIA 12/30/2011 LINDA PIPE STRIPPER, BALTAZAR 287.5 THROMBOCYTOPENIA 12/30/2011 LINDA PIPE STRIPPER, BALTAZAR 285.9 ANEMIA 12/30/2011 LINDA PIPE STRIPPER, BALTAZAR 287.5 THROMBOCYTOPENIA 12/30/2011 YOLI PIPE STRIPPER, HAMZAH S 285.9 ANEMIA 12/30/2011 YOLI PIPE STRIPPER, HAMZAH S 287.5 THROMBOCYTOPENIA 12/30/2011 YOLI PIPE STRIPPER, HAMZAH S 285.9 ANEMIA 12/30/2011 YOLI PIPE STRIPPER, HAMZAH S 287.5 THROMBOCYTOPENIA 02/25/2012 Ot 429.3 CARDIOMEGALY 02/25/2012 Ot 715.36 LOC OSTEOARTH NOS-L/LEG 02/25/2012 Ot 920 CONTUSION FACE/SCALP/NCK 02/25/2012 Ot 924.11 CONTUSION OF KNEE 02/25/2012 Ot 959.09 INJURY OF FACE AND NECK 02/25/2012 Ot E000.8 OTHER EXTERNAL CAUSE STATUS 02/25/2012 Ot E001.0 ACTIVITIES INVOLVING WALKING, MARCHING A 02/25/2012 Ot E849.0 ACCIDENT IN HOME 02/25/2012 Ot E888.9 FALL NOS 03/09/2012 625.6 STRESS INCONTINENCE FEMALE 03/09/2012 625.6 STRESS INCONTINENCE FEMALE 03/09/2012 ONEYDA ZAVALA, ANIL GOMEZ 625.6 STRESS INCONTINENCE FEMALE 03/09/2012 YOLI ZAVALA, HAMZAH S 625.6 STRESS INCONTINENCE FEMALE 03/09/2012 DARLIN ANDERSON, ARIC 625.6 STRESS INCONTINENCE FEMALE 03/09/2012 625.6 STRESS INCONTINENCE FEMALE 03/09/2012 625.6 STRESS INCONTINENCE FEMALE 03/09/2012 625.6 STRESS INCONTINENCE FEMALE 03/09/2012 625.6 STRESS INCONTINENCE FEMALE 03/09/2012 625.6 STRESS INCONTINENCE FEMALE 03/09/2012 YOLI PIPE STRIPPER, HAMZAH S 625.6 STRESS INCONTINENCE FEMALE 03/09/2012 YOLI PIPE STRIPPER, HAMZAH S 625.6 STRESS INCONTINENCE FEMALE 03/09/2012 YOLI IVEYN, HAMZAH S 625.6 STRESS INCONTINENCE FEMALE 03/09/2012 ARIC SAEED MD 625.6 STRESS INCONTINENCE FEMALE 03/09/2012 ANIL CALL APRN 625.6 STRESS INCONTINENCE FEMALE 03/09/2012 YOLI PIPE STRIPPER, HAMZAH S 625.6 STRESS INCONTINENCE FEMALE 03/09/2012 YOLI PIPE STRIPPER, HAMZAH S 625.6 STRESS INCONTINENCE FEMALE 03/09/2012 YOLI PIPE STRIPPER, HAMZAH S 625.6 STRESS INCONTINENCE FEMALE 03/09/2012 YOLI PIPE STRIPPER, HAMZAH S 625.6 STRESS INCONTINENCE FEMALE 03/09/2012 LINDA PIPE STRIPPER, BALTAZAR 625.6 STRESS INCONTINENCE FEMALE 03/09/2012 LINDA PIPE STRIPPER, BALTAZAR 625.6 STRESS INCONTINENCE FEMALE 03/09/2012 YOLI IVEYN, HAMZAH S 625.6 STRESS INCONTINENCE FEMALE 03/09/2012 YOLI IVEYN, HAMZAH S 625.6 STRESS INCONTINENCE FEMALE 11/13/2012 YOLI ZAVALA, HAMZAH S 565.0 ANAL FISSURE 11/13/2012 YOLI ZAVALA, HAMZAH S 733.6 TIETZE'S DISEASE 11/13/2012 YOLI ZAVALA, HAMZAH S 565.0 ANAL FISSURE 11/13/2012 YOLI ZAVALA, HAMZAH S 733.6 TIETZE'S DISEASE 11/13/2012 YOLI ZAVALA, HAMZAH S 565.0 ANAL FISSURE 11/13/2012 YOLI ZAVALA, HAMZAH S 733.6 TIETZE'S DISEASE 11/13/2012 ARIC SAEED MD 565.0 ANAL FISSURE 11/13/2012 ARIC SAEED MD 733.6 TIETZE'S DISEASE 11/13/2012 ANIL CALL APRN 565.0 ANAL FISSURE 11/13/2012 CALL PIPE STRIPPER, ANIL MCCOYH 733.6 TIETZE'S DISEASE 11/13/2012 YOLI PIPE STRIPPER, HAMZAH S 565.0 ANAL FISSURE 11/13/2012 YOLI PIPE STRIPPER, HAMZAH S 733.6 TIETZE'S DISEASE 11/13/2012 YOLI PIPE STRIPPER, HAMZAH S 565.0 ANAL FISSURE 11/13/2012 YOLI PIPE STRIPPER, HAMZAH S 733.6 TIETZE'S DISEASE 11/13/2012 YOLI PIPE STRIPPER, HAMZAH S 565.0 ANAL FISSURE 11/13/2012 YOLI PIPE STRIPPER, HAMZAH S 733.6 TIETZE'S DISEASE 11/13/2012 YOLI PIPE STRIPPER, HAMZAH S 565.0 ANAL FISSURE 11/13/2012 YOLI PIPE STRIPPER, HAMZAH S 733.6 TIETZE'S DISEASE 11/13/2012 LINDA PIPE STRIPPER, BALTAZAR 565.0 ANAL FISSURE 11/13/2012 LINDA PIPE STRIPPER, BALTAZAR 733.6 TIETZE'S DISEASE 11/13/2012 LINDA PIPE STRIPPER, BALTAZAR 565.0 ANAL FISSURE 11/13/2012 LINDA PIPE STRIPPER, BALTAZAR 733.6 TIETZE'S DISEASE 11/13/2012 YOLI PIPE STRIPPER, HAMZAH S 565.0 ANAL FISSURE 11/13/2012 YOLI PIPE STRIPPER, HAMZAH S 733.6 TIETZE'S DISEASE 11/13/2012 YOLI PIPE STRIPPER, HAMZAH S 565.0 ANAL FISSURE 11/13/2012 YOLI PIPE STRIPPER, HAMZAH S 733.6 TIETZE'S DISEASE 06/20/2013 ARIC SAEED MD 552.1 UMBILICAL HERNIA WITH OBSTRUCTION 06/20/2013 ARIC SAEED MD 784.0 HEADACHE 06/20/2013 ANIL CALL APRN 552.1 UMBILICAL HERNIA WITH OBSTRUCTION 06/20/2013 ANIL CALL APRN 784.0 HEADACHE 06/20/2013 JONELLE KENT APRNNDA S 552.1 UMBILICAL HERNIA WITH OBSTRUCTION 06/20/2013 YOLI PIPE STRIPPER, HAMZAH S 784.0 HEADACHE 06/20/2013 YOLI PIPE STRIPPER, HAMAZH S 552.1 UMBILICAL HERNIA WITH OBSTRUCTION 06/20/2013 YOLI PIPE STRIPPER, HAMZAH S 784.0 HEADACHE 06/20/2013 YOLI PIPE STRIPPER, HAMZAH S 552.1 UMBILICAL HERNIA WITH OBSTRUCTION 06/20/2013 YOLI PIPE STRIPPER, HAMZAH S 784.0 HEADACHE 06/20/2013 YOLI PIPE STRIPPER, HAMZAH S 552.1 UMBILICAL HERNIA WITH OBSTRUCTION 06/20/2013 YOLI PIPE STRIPPER, HAMZAH S 784.0 HEADACHE 06/20/2013 LINDA PIPE STRIPPER, BALTAZAR 552.1 UMBILICAL HERNIA WITH OBSTRUCTION 06/20/2013 LINDA PIPE STRIPPER, BALTAZAR 784.0 HEADACHE 06/20/2013 LINDA PIPE STRIPPER, BALTAZAR 552.1 UMBILICAL HERNIA WITH OBSTRUCTION 06/20/2013 LINDA PIPE STRIPPER, BALTAZAR 784.0 HEADACHE 06/20/2013 YOLI PIPE STRIPPER, HAMZAH S 552.1 UMBILICAL HERNIA WITH OBSTRUCTION 06/20/2013 YOLI PIPE STRIPPER, HAMZAH S 784.0 HEADACHE 06/20/2013 YOLI PIPE STRIPPER, HAMZAH S 552.1 UMBILICAL HERNIA WITH OBSTRUCTION 06/20/2013 YOLI PIPE STRIPPER, HAMZAH S 784.0 HEADACHE 07/12/2013 SMOOTH WHITTAKER MD Ot 553.1 UMBILICAL HERNIA 07/12/2013 SMOOTH WHITTAKER MD Ot V58.69 OT MED,LT,CURRENT USE 03/19/2014 LINDA PIPE STRIPPER, BALTAZAR 465.9 UPPER RESPIRATORY INFECTION 03/19/2014 YOLI PIPE STRIPPER, HAMZAH S 465.9 UPPER RESPIRATORY INFECTION 03/19/2014 YOLI PIPE STRIPPER, HAMZAH S 465.9 UPPER RESPIRATORY INFECTION 01/15/2015 Ot V76.12 01/15/2015 Ot 793.81 01/15/2015 Ot V76.12 01/15/2015 Ot 793.81 01/15/2015 Ot 793.89 01/15/2015 Ot 793.89 01/15/2015 HAMZAH KENT CANTEEN OPERATOR Ot 217 01/15/2015 HAMZAH KENTP Ot V76.12 01/15/2015 PANFILO ANDERSON, SMOOTH Ot 553.1 01/15/2015 PANFILO ANDERSON, SMOOTH Ot V72.63 01/15/2015 PANFILO ANDERSON, SMOOTH Ot V72.81 01/15/2015 PANFILO ANDERSON, SMOOTH Ot V72.84 01/15/2015 PANFILO ANDERSON, SMOOTH Ot V74.8 01/15/2015 YOLI HAMZAH CANTEEN OPERATOR Ot 793.89 03/04/2015 YOLI HAMZAH CANTEEN OPERATOR Ot R92.8 03/04/2015 YOLI HAMZAH CANTEEN OPERATOR Ot Z12.31 03/07/2015 YOLI HAMZAH CANTEEN OPERATOR Ot R92.8 03/07/2015 YOLI HAMZAH CANTEEN OPERATOR Ot Z12.31 06/29/2015 IVY DACOSTA, SAMANTHA K Ot S00.33XA CONTUSION OF NOSE, INITIAL ENCOUNTER 06/29/2015 IVY DO, SAMANTHA K Ot W01.0XXA FALL SAME LEV FROM SLIP/TRIP W/O STRIKE 06/29/2015 IVY DO, SAMANTHA K Ot Y92.010 KITCHEN OF SINGLE-FAMILY (PRIVATE) HOUSE 06/29/2015 IVY DO, SAMANTHA K Ot Y99.8 OTHER EXTERNAL CAUSE STATUS 06/30/2015 IVY DO, SAMANTHA K Ot S00.33XA CONTUSION OF NOSE, INITIAL ENCOUNTER 06/30/2015 IVY DO, SAMANTHA K Ot W01.0XXA FALL SAME LEV FROM SLIP/TRIP W/O STRIKE 06/30/2015 IVY DO, SAMANTHA K Ot Y92.010 KITCHEN OF SINGLE-FAMILY (PRIVATE) HOUSE 06/30/2015 IVY DO, SAMANTHA K Ot Y99.8 OTHER EXTERNAL CAUSE STATUS 07/01/2015 IVY DO, SAMANTHA K Ot S00.33XA CONTUSION OF NOSE, INITIAL ENCOUNTER 07/01/2015 IVY DO, SAMANTHA K Ot W01.0XXA FALL SAME LEV FROM SLIP/TRIP W/O STRIKE 07/01/2015 IVY DO, SAMANTHA K Ot Y92.010 KITCHEN OF SINGLE-FAMILY (PRIVATE) HOUSE 07/01/2015 IVY DO, SAMANTHA K Ot Y99.8 OTHER EXTERNAL CAUSE STATUS 09/03/2015 Ot V76.12 OTH SCREEN MAMMO-MALIGN NEOPLASM OF [place]AKHWINDER 09/03/2015 Ot 793.81 MAMMOGRAPHIC MICROCLACIFICATION 09/03/2015 Ot V76.12 OTH SCREEN MAMMO-MALIGN NEOPLASM OF [place]AKHWINDER 09/03/2015 Ot 793.81 MAMMOGRAPHIC MICROCLACIFICATION 09/03/2015 Ot 793.89 OTH (ABN) FINDINGS ON RADIOLOGICAL EXAMI 09/03/2015 Ot 793.89 OTH (ABN) FINDINGS ON RADIOLOGICAL EXAMI 09/03/2015 HAMZAH KENT CANTEEN OPERATOR Ot 217 BENIGN NEOPLASM BREAST 09/03/2015 HAMZAH KENT Ot V76.12 OTH SCREEN MAMMO-MALIGN NEOPLASM OF [place]INDER 09/03/2015 PANFILO ANDERSON, SMOOTH Ot 553.1 UMBILICAL HERNIA 09/03/2015 SMOOTH WHITTAKER MD Ot V72.63 PRE-PROCEDURAL LABORATORY EXAMINATION 09/03/2015 SMOOTH WHITTAKER MD Ot V72.81 [id number] CARDIOVASCULAR 09/03/2015 SMOOTH WHITTAKER MD Ot V72.84 EXAM PRE-OPERATIVE NOS 09/03/2015 SMOOTH WHITTAKER MD Ot V74.8 SCREEN-BACTERIAL DIS NEC 09/03/2015 HAMZAH KENT Ot 793.89 OTH (ABN) FINDINGS ON RADIOLOGICAL EXAMI 09/03/2015 HAMZAH KENT Ot R92.8 OTH ABN AND INCONCLUSIVE FINDINGS ON DX 09/03/2015 HAMZAH KENT Ot Z12.31 ENCNTR SCREEN MAMMOGRAM FOR MALIGNANT NE 09/03/2015 HAMZAH KENT CANTEEN OPERATOR Ot R92.8 OTH ABN AND INCONCLUSIVE FINDINGS ON DX 09/03/2015 HAMZAH KENTP Ot R92.8 OTH ABN AND INCONCLUSIVE FINDINGS ON DX 09/04/2015 HAMZAH KENTP Ot R92.8 OTH ABN AND INCONCLUSIVE FINDINGS ON DX 10/02/2015 HAMZAH KENTP Ot R92.8 OTH ABN AND INCONCLUSIVE FINDINGS ON DX 10/07/2015 HAMZAH KENT CANTEEN OPERATOR Ot R92.8 OTH ABN AND INCONCLUSIVE FINDINGS ON DX 03/01/2016 Ot 793.81 MAMMOGRAPHIC MICROCLACIFICATION 03/01/2016 Ot V76.12 OTH SCREEN MAMMO-MALIGN NEOPLASM OF [place]INDER 03/01/2016 Ot 793.81 MAMMOGRAPHIC MICROCLACIFICATION 03/01/2016 Ot 793.89 OTH (ABN) FINDINGS ON RADIOLOGICAL EXAMI 03/01/2016 Ot 793.89 OTH (ABN) FINDINGS ON RADIOLOGICAL EXAMI 03/01/2016 HAMZAH KENT Ot 217 BENIGN NEOPLASM BREAST 03/01/2016 HAMZAH KENT Ot V76.12 OTH SCREEN MAMMO-MALIGN NEOPLASM OF [place]INDER 03/01/2016 SMOOTH WHITTAKER MD Ot 553.1 UMBILICAL HERNIA 03/01/2016 SMOOTH WHITTAKER MD Ot V72.63 PRE-PROCEDURAL LABORATORY EXAMINATION 03/01/2016 SMOOTH WHITTAKER MD Ot V72.81 [id number] CARDIOVASCULAR 03/01/2016 SMOOTH WHITTAKER MD Ot V72.84 EXAM PRE-OPERATIVE NOS 03/01/2016 SMOOTH WHITTAKER MD Ot V74.8 SCREEN-BACTERIAL DIS NEC 03/01/2016 HAMZAH KENT Ot 793.89 OTH (ABN) FINDINGS ON RADIOLOGICAL EXAMI 03/01/2016 HAMZAH KENT Ot R92.8 OTH ABN AND INCONCLUSIVE FINDINGS ON DX 03/01/2016 HAMZAH KENT Ot Z12.31 ENCNTR SCREEN MAMMOGRAM FOR MALIGNANT NE 03/01/2016 HAMZAH KENT Ot R92.8 OTH ABN AND INCONCLUSIVE FINDINGS ON DX 03/05/2016 ELVA HINOJOSA DO Ot Z01.818 ENCOUNTER FOR OTHER PREPROCEDURAL EXAMIN 03/05/2016 ELVA HINOJOSA DO Ot Z12.11 ENCOUNTER FOR SCREENING FOR MALIGNANT NE 03/16/2016 Ot 793.81 MAMMOGRAPHIC MICROCLACIFICATION 03/16/2016 Ot V76.12 OTH SCREEN MAMMO-MALIGN NEOPLASM OF [place]AKHWINDER 03/16/2016 Ot 793.81 MAMMOGRAPHIC MICROCLACIFICATION 03/16/2016 Ot 793.89 OTH (ABN) FINDINGS ON RADIOLOGICAL EXAMI 03/16/2016 Ot 793.89 OTH (ABN) FINDINGS ON RADIOLOGICAL EXAMI 03/16/2016 HAMZAH KENTP Ot 217 BENIGN NEOPLASM BREAST 03/16/2016 HAMZAH KENT Ot V76.12 OTH SCREEN MAMMO-MALIGN NEOPLASM OF [place]HWINDER 03/16/2016 SMOOTH WHITTAKER MD Ot 553.1 UMBILICAL HERNIA 03/16/2016 SMOOTH WHITTAKER MD Ot V72.63 PRE-PROCEDURAL LABORATORY EXAMINATION 03/16/2016 SMOOTH WHITTAKER MD Ot V72.81 [id number] CARDIOVASCULAR 03/16/2016 SMOOTH WHITTAKER MD Ot V72.84 EXAM PRE-OPERATIVE NOS 03/16/2016 SMOOTH WHITTAKER MD Ot V74.8 SCREEN-BACTERIAL DIS NEC 03/16/2016 HAMZAH KENT Ot 793.89 OTH (ABN) FINDINGS ON RADIOLOGICAL EXAMI 03/16/2016 HAMZAH KENT Ot R92.8 OTH ABN AND INCONCLUSIVE FINDINGS ON DX 03/16/2016 HAMZAH KENT Ot Z12.31 ENCNTR SCREEN MAMMOGRAM FOR MALIGNANT NE 03/16/2016 HAMZAH KENT Ot R92.8 OTH ABN AND INCONCLUSIVE FINDINGS ON DX 03/16/2016 ELVA HINOJOSA DO Ot Z01.818 ENCOUNTER FOR OTHER PREPROCEDURAL EXAMIN 03/16/2016 ELVA HINOJOSA DO Ot Z12.11 ENCOUNTER FOR SCREENING FOR MALIGNANT NE 03/16/2016 ELVA HINOJOSA DO Ot Z01.818 ENCOUNTER FOR OTHER PREPROCEDURAL EXAMIN 03/16/2016 ELVA HINOJOSA DO Ot Z12.11 ENCOUNTER FOR SCREENING FOR MALIGNANT NE 03/17/2016 ELVA HINOJOSA DO Ot E11.9 TYPE 2 DIABETES MELLITUS WITHOUT COMPLIC 03/17/2016 ELVA HINOJOSA DO Ot Z12.11 ENCOUNTER FOR SCREENING FOR MALIGNANT NE 03/17/2016 ELVA HINOJOSA DO Ot Z79.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 CUTTER (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) USE OF ORAL HYPOGLYC 03/17/2016 ELVA HINOJOSA DO Ot Z80.0 FAMILY HISTORY OF MALIGNANT NEOPLASM OF 03/24/2016 HAMZAH KENT Ot R92.8 OTH ABN AND INCONCLUSIVE FINDINGS ON DX Procedures Code Description [place] [address] ROUTINE VENIPUNCTURE 12/27/2011 90260 A1C (IN-HOUSE) 81662 LIPID PANEL 12/26 82746 CBC 12/27/2011 81220 ROUTINE VENIPUNCTURE 01/04/2012 50999 CBC 01/04/2012 25706 FERRITIN 2011 87814 VIT B 12 2011 33988 FOLATE 2011 93451 RETICULOCYTE COUNT 01/05/2012 86511 ROUTINE VENIPUNCTURE 04/06/2012 53264 CBC 04/06/2012 86355 A1C (IN-HOUSE) 92658 MICRO ALBUMIN-IN HOUSE 06/12/2012 50568 ROUTINE VENIPUNCTURE 10/17/2012 85402 MAMMOGRAM, SCREENING 10/17/2012 85821 A1C (IN-HOUSE) 16986 CMP 10/17/2012 12754 LIPID PANEL 10/17 5846558 GFR CALC (RESULT ONLY) 10/17/2012 G0008 FLU ADMINISTRATION (MEDICARE ONLY) 11/13/2012 80220 UA LONG DIP 11/13 71236 MICRO ALBUMIN-IN HOUSE 11/13/2012 97506 A1C (IN-HOUSE) 88975 ROUTINE VENIPUNCTURE 06/20/2013 62530 MICRO ALBUMIN-IN HOUSE 06/20/2013 95900 A1C (IN-HOUSE) 7840930 GFR CALC (RESULT ONLY) 06/20/2013 98016 CMP 06/20/2013 08155 LIPID PANEL 06/20 23349 TSH 06/20/2013 18803 ROUTINE VENIPUNCTURE 10/17/2013 40607 A1C (IN-HOUSE) 74880 LIPID PANEL 10/17 83865 CBC 10/17/2013 5966675 GFR CALC (RESULT ONLY) 10/17/2013 51185 CMP 10/17/2013 18230 MAMMOGRAM DX, JENNY 11/13/2013 50453 A1C (IN-HOUSE) 57175 MICRO ALBUMIN-IN HOUSE 01/24/2014 94464 ROUTINE VENIPUNCTURE 05/30/2014 16837 A1C (IN-HOUSE) 43862 CMP 05/30/2014 03874 LIPID PANEL 05/30 2526903 GFR CALC (RESULT ONLY) 05/30/2014 Results Test Result Range Capillary blood glucose measurement by glucometer (mass/volume) - 03/16/16 09: 42 Capillary blood glucose measurement by glucometer (mass/volume) 80 mg/dL 70-110 Encounters ACCT No. Visit Date/Time Discharge Status Pt. Type Provider Facility Loc./Unit Complaint [id number] 05/30/2014 10:52:00 05/30/2014 23: 59:59 CLS Outpatient HAMZAH KENT APRN [id number] 05/30/2014 10:52:00 05/30/2014 23: 59:59 CLS Outpatient HAMZAH KENT APRN [id number] 02/26/2014 12:46:00 02/26/2014 23: 59:59 CLS Outpatient BALTAZAR MCKEON APRN [id number] 02/26/2014 12:46:00 02/26/2014 23: 59:59 CLS Outpatient BALTAZAR MCKEON APRN [id number] 01/24/2014 10:30:00 01/24/2014 23: 59:59 CLS Outpatient HAMZAH KENT APRN [id number] 10/17/2013 08:50:00 10/17/2013 23: 59:59 CLS Outpatient HAMZAH KENT APRN S [id number] 10/17/2013 08:50:00 10/17/2013 23: 59:59 CLS Outpatient HAMZAH KENT APRN [id number] 09/17/2013 09:57:00 09/17/2013 23: 59:59 CLS Outpatient HAMZAH KENT APRN [id number] 07/10/2013 08:20:00 07/10/2013 23: 59:59 CLS Outpatient ONEYDA SALLY ANIL GOMEZ [id number] 06/20/2013 08:46:00 06/20/2013 23: 59:59 CLS Outpatient ARIC SAEED MD [id number] 01/31/2013 08:35:00 01/31/2013 23: 59:59 CLS Outpatient HAMZAH KENT APRN [id number] 01/31/2013 08:35:00 01/31/2013 23: 59:59 CLS Outpatient HAMZAH KENT APRN [id number] 11/13/2012 12:18:00 11/13/2012 23: 59:59 CLS Outpatient HAMZAH KENT APRN [id number] 05/09/2012 10:07:00 05/09/2012 23: 59:59 CLS Outpatient ARIC SAEED MD [id number] 04/20/2012 09:48:00 04/20/2012 23: 59:59 CLS Outpatient HAMZAH KENT APRN [id number] 04/06/2012 15:04:00 04/06/2012 23: 59:59 CLS Outpatient ANIL CALL APRN [id number] 03/16/2012 11:42:00 03/16/2012 23: 59:59 CLS Outpatient [id number] 03/09/2012 11:31:00 03/09/2012 23: 59:59 CLS Outpatient 145 01/04/2012 10:18:00 01/04/2012 23:59: 59 CLS Outpatient HAMZAH KENT APRN [id number] 12/27/2011 08:54:00 12/27/2011 23: 59:59 CLS Outpatient HAMZAH KENT APRN [id number] 10/23/2010 09:32:00 10/23/2010 23: 59:59 CLS Outpatient [id number] 10/17/2012 10:07:00 Document Registration [id number] 10/17/2012 10:07:00 Document Registration [id number] 09/11/2012 10:31:00 Document Registration [id number] 06/14/2012 09:56:00 Document Registration [id number] 06/12/2012 08:54:00 Document Registration
--- NOTE | 2016-03-29 13:26 | Diagnostic Imaging Report ---
Bilateral diagnostic mammogram. INDICATION: Cluster of calcification seen in the medial aspect of the right breast. CAD is utilized. COMPARISON: 09/03/2015. FINDINGS: The breasts demonstrate scattered fibroglandular densities. There are calcifications in the breasts again noted. In particular the calcifications in the medial aspect of the right breast are again evaluated and appear to demonstrate slight increase in the number of calcifications in somewhat linear distribution. There is slight heterogeneity of these calcifications. No definite underlying mass. There is an adjacent biopsy clip. Two other biopsy clips are seen in the right breast. No evidence of any change. IMPRESSION: Slightly increased calcifications with minimal heterogeneity and linear distribution are noted in the medial slightly inferior aspect of the right breast. Ultrasound evaluation to check for correlating abnormality is pending. ACR BI-RADS Category 0: Incomplete. (Needs additional imaging evaluation). Result letter will be mailed to the patient. Note: At least 10% of breast cancer is not imaged by mammography. Dictated by: Dictated on workstation # [id number]
--- NOTE | 2016-03-29 14:54 | Diagnostic Imaging Report ---
EXAMINATION: Right breast ultrasound. INDICATION: Right breast medial calcifications. FINDINGS: No definite correlating lesion is identified. IMPRESSION: Negative study. The increased calcifications in the medial inferior aspect of the right breast are of indeterminate etiology. Given the slight increase from the prior study, a stereotactic biopsy is recommended. The findings and recommendations were discussed with the patient at the time of dictation. The report was faxed to the office of KANIKA Kelly, by dory@ 3 PM. ACR BI-RADS Category 4A: Low suspicion of malignancy Imaging Follow Up Interval: Now. Dictated by: Dictated on workstation # [id number]
== END ==
LOC: RAD 12:18
PROVIDERS: ATTEND Nurse Practitioner Community Health
DX: R92.8 Other abnormal and inconclusive findings on diagnostic imaging of breast (principal)
CPT/HCPCS: 77066

== ENCOUNTER → 2016-07-27 | Outpatient (CLI) | payer MEDICARE, MEDICAID ==
[~2016-07-27] VITALS: Ht 149.9 cm; Wt 93.0 kg
[~2016-07-27] MED LIST changes: +LIDOCAINE/EPI 1%-1:100,000 (XYLOCAINE) 20ML INJ ONE; +NS (IVPB) 100 ML ONE
[2016-07-27 10:16] VITALS: BP 130/82
[2016-07-27 11:29] VITALS: BP 132/80
--- NOTE | 2016-07-28 13:07 | Diagnostic Imaging Report ---
EXAMINATION: Vacuum-assisted stereotactic breast biopsy , with clip placement, and specimen radiographs. INDICATION: Right breast calcifications . CONSENT: Informed consent was obtained from the patient. The risks, benefits, potential complications and alternatives were reviewed and all questions answered to the patient's satisfaction. PROCEDURE: The patient is positioned on the stereotactic mammography machine in sitting position. Prior mammograms were reviewed and based on the position of the calcifications, the appropriate the approach is selected. Initial stereotactic mammographic views at -15 and +15 degrees where performed and confirmation of localization of the lesion is performed. The localization is performed with the stereotactic software assistance and confirmed visually to match the area of interest. After satisfactory localization with initial stereotactic mammographic images, the biopsy tract approach is selected from medial to lateral with the skin site determined. After sterile preparation and draping, 1% lidocaine was utilized for local anesthesia. After confirming the targeted calcifications along the medial right breast, multiple vacuum-assisted stereotactic biopsies, with 8-gauge core needles, were performed. The specimen radiograph was performed a separate mammography units and demonstrates calcifications. Subsequently, a marking clip was placed at the site of the biopsy. Subsequently CC and lateral views mammogram is performed and confirms proper positioning of the clip. The patient tolerated the procedure well with no immediate complications. IMPRESSION: Successful stereotactic vacuum-assisted right breast biopsy for calcifications along the medial aspect. A marking clip was left in place. The specimen radiograph demonstrates the calcifications. Dictated by: Dictated on workstation # [id number]
== END ==
LOC: RAD 09:46
PROVIDERS: ATTEND Nurse Practitioner Community Health
DX: D24.1 Benign neoplasm of right breast (principal)
CPT/HCPCS: 19081

== ENCOUNTER 2017-04-17 20:48 | Emergency (ER) | payer MEDICARE, MEDICAID ==
[~2017-04-17] VITALS: Ht 149.9 cm; Wt 90.3 kg
[~2017-04-17 20:48] MED LIST changes: -LIDOCAINE/EPI 1%-1:100,000 (XYLOCAINE) 20ML INJ ONE; -NS (IVPB) 100 ML ONE
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
--- NOTE | 2017-04-17 21:32 | Diagnostic Imaging Report ---
PROCEDURE: CT head without contrast. TECHNIQUE: Multiple contiguous axial images were obtained through the brain without the use of intravenous contrast. DATE: 04/17/2017. COMPARISON: 06/28/2015. INDICATION: 66-year-old female, fall. Headache. FINDINGS: The ventricles and cerebral spinal fluid spaces are of normal size and configuration for the patient's age. There is no mass effect or midline shift. There is no acute intracranial hemorrhage. There is no abnormal extra-axial fluid collection. The visualized portions of the paranasal sinuses, mastoid air cells and middle ears are well aerated. IMPRESSION: 1. No identified acute intracranial abnormality. Dictated by: Dictated on workstation # [id number]
--- NOTE | 2017-04-17 21:42 | Diagnostic Imaging Report ---
EXAMINATION: Left knee radiographs, 3 views. COMPARISON: 02/25/2012. HISTORY: 66-year-old female, fall. Left knee pain. FINDINGS: There is severe medial compartment joint space loss of the left knee. The contour of the lateral femoral condyle is somewhat irregular although unchanged since the comparison exam. There is severe patellofemoral compartment joint space loss with prominent patellofemoral compartment osteophytes. There is no identified knee joint effusion. There is degenerative type enthesophyte formation at the insertion of the distal quadriceps and patellar tendons. The bones appear somewhat demineralized. There is no identified acute fracture. IMPRESSION: 1. No identified acute bony abnormality of the left knee. 2. Severe tricompartmental osteoarthritis of the left knee. 3. No knee joint effusion. Dictated by: Dictated on workstation # [id number]
--- NOTE | 2017-04-17 22:32 | Diagnostic Imaging Report ---
EXAMINATION: Pelvis, single view. Left hip radiographs, 2 views. COMPARISON: None. HISTORY: 66-year-old female, fall. Left hip pain. FINDINGS: The right hip is not obviously dislocated. There is no abnormal widening of the pubic symphysis or sacroiliac joints. The left hip is not dislocated. There is degenerative type enthesopathy adjacent to the left greater trochanter and right greater trochanter as well as the bilateral iliac crest and anterior superior iliac spines. There is no identified acute fracture. There are degenerative changes of the lower lumbar spine at L4-L5 and L5-S1. There is moderate joint space loss of both hips. IMPRESSION: 1. No identified acute bony abnormality of the pelvis or left hip. Dictated by: Dictated on workstation # [id number]
[2017-04-17] MEDS ORDERED: HYDROcodone/APAP 5 MG/325 MG (LORTAB) TAB PO STA (22:52)
[2017-04-17 23:00] VITALS: BP 134/69
== END 2017-04-17 23:00 | disposition home or self-care (01) ==
LOC: EDUNIT# 20:48 → ER 20:49
DX: S70.02XA Contusion of left hip, initial encounter (principal); M17.12 Unilateral primary osteoarthritis, left knee; J45.909 Unspecified asthma, uncomplicated; I10 Essential (primary) hypertension; G43.909 Migraine, unspecified, not intractable, without status migrainosus; E11.9 Type 2 diabetes mellitus without complications; F31.9 Bipolar disorder, unspecified; Z79.82 Long term (current) use of aspirin; Z79.84 Long term (current) use of oral hypoglycemic drugs; Z85.828 Personal history of other malignant neoplasm of skin; Y04.8XXA Assault by other bodily force, initial encounter
CPT/HCPCS: 70450; 73562

== ENCOUNTER → 2018-08-01 | Outpatient (CLI) | payer MEDICARE, MEDICAID | LOC: WOUNDCARE 13:57 | PROVIDERS: ATTEND Surgery | DX: E11.622 Type 2 diabetes mellitus with other skin ulcer (principal); L97.222 Non-pressure chronic ulcer of left calf with fat layer exposed; I87.332 Chronic venous hypertension (idiopathic) with ulcer and inflammation of left lower extremity; I89.0 Lymphedema, not elsewhere classified | CPT/HCPCS: 29581 ==

== ENCOUNTER → 2018-08-08 | Outpatient (CLI) | payer MEDICARE, MEDICAID | LOC: WOUNDCARE 13:15 | PROVIDERS: ATTEND Surgery | DX: L97.222 Non-pressure chronic ulcer of left calf with fat layer exposed (principal); E11.622 Type 2 diabetes mellitus with other skin ulcer; I87.332 Chronic venous hypertension (idiopathic) with ulcer and inflammation of left lower extremity; I89.0 Lymphedema, not elsewhere classified; I70.242 Atherosclerosis of native arteries of left leg with ulceration of calf | CPT/HCPCS: 11042; 87070; 87205 ==

== ENCOUNTER → 2018-08-08 | Outpatient (CLI) | payer MEDICARE, MEDICAID ==
[2018-08-08 14:51] LABS: BASOPHILS % (AUTO) 0 % (0-10); EOSINOPHILS # (AUTO) 0.4 10^3/uL (0.0-0.3); EOSINOPHILS % (AUTO) 6 % (0-10); HEMATOCRIT 38 % (35-52); HEMOGLOBIN 12.5 G/DL (11.5-16.0); LYMPHOCYTES % (AUTO) 28 % (12-44); MEAN CORPUSCULAR HEMOGLOBIN 29 PG (25-34); MEAN CORPUSCULAR HGB CONC 33 G/DL (32-36); MEAN CORPUSCULAR VOLUME 86 FL (80-99); MEAN PLATELET VOLUME 9.2 FL (7.4-10.4); MONOCYTES # (AUTO) 0.6 X 10^3 (0.0-1.0); MONOCYTES % (AUTO) 8 % (0-12); NEUTROPHILS # (AUTO) 4.3 X 10^3 (1.8-7.8); NEUTROPHILS % (AUTO) 59 % (42-75); PLATELET COUNT 252 10^3/uL (130-400); RED CELL DISTRIBUTION WIDTH 14.6 % (10.0-14.5); WHITE BLOOD COUNT 7.2 10^3/uL (4.3-11.0)
[2018-08-08 15:16] LABS: ALANINE AMINOTRANSFERASE 8 U/L (0-55); ALBUMIN 3.8 GM/DL (3.2-4.5); ALKALINE PHOSPHATASE 92 U/L (40-136); BILIRUBIN,TOTAL 0.3 MG/DL (0.1-1.0); BUN/CREATININE RATIO 15; CALCIUM 8.9 MG/DL (8.5-10.1); CARBON DIOXIDE 20 MMOL/L (21-32); CHLORIDE 111 MMOL/L (98-107); CREATININE SERUM 0.67 MG/DL (0.60-1.30); GFR ESTIMATED > 60; GLUCOSE 84 MG/DL (70-105); POTASSIUM 3.8 MMOL/L (3.6-5.0); SODIUM 140 MMOL/L (135-145); TOTAL PROTEIN 7.8 GM/DL (6.4-8.2)
== END ==
LOC: LAB 14:27
PROVIDERS: ATTEND Surgery
DX: E11.622 Type 2 diabetes mellitus with other skin ulcer (principal); L97.222 Non-pressure chronic ulcer of left calf with fat layer exposed; I87.332 Chronic venous hypertension (idiopathic) with ulcer and inflammation of left lower extremity; I89.0 Lymphedema, not elsewhere classified; I70.242 Atherosclerosis of native arteries of left leg with ulceration of calf
CPT/HCPCS: 36415; 80053; 83036; 84134; 85025

== ENCOUNTER → 2018-08-14 | Outpatient (CLI) | payer MEDICARE, MEDICAID | LOC: WOUNDCARE 14:46 | PROVIDERS: ATTEND Surgery | DX: E11.622 Type 2 diabetes mellitus with other skin ulcer (principal); I70.242 Atherosclerosis of native arteries of left leg with ulceration of calf; I87.332 Chronic venous hypertension (idiopathic) with ulcer and inflammation of left lower extremity; L97.222 Non-pressure chronic ulcer of left calf with fat layer exposed; I89.0 Lymphedema, not elsewhere classified | CPT/HCPCS: 11042 ==

== ENCOUNTER → 2018-08-23 | Outpatient (CLI) | payer MEDICARE, MEDICAID | LOC: WOUNDCARE 12:42 | PROVIDERS: ATTEND Surgery | DX: E11.622 Type 2 diabetes mellitus with other skin ulcer (principal); I87.332 Chronic venous hypertension (idiopathic) with ulcer and inflammation of left lower extremity; L97.222 Non-pressure chronic ulcer of left calf with fat layer exposed; I89.0 Lymphedema, not elsewhere classified | CPT/HCPCS: 11042 ==

== ENCOUNTER → 2018-08-29 | Outpatient (CLI) | payer MEDICARE, MEDICAID | LOC: WOUNDCARE 14:12 | PROVIDERS: ATTEND Surgery | DX: E11.52 Type 2 diabetes mellitus with diabetic peripheral angiopathy with gangrene (principal); E11.622 Type 2 diabetes mellitus with other skin ulcer; I96 Gangrene, not elsewhere classified; L97.222 Non-pressure chronic ulcer of left calf with fat layer exposed; I87.312 Chronic venous hypertension (idiopathic) with ulcer of left lower extremity; I89.0 Lymphedema, not elsewhere classified | CPT/HCPCS: 11042 ==

== ENCOUNTER → 2018-09-05 | Outpatient (CLI) | payer MEDICARE, MEDICAID | LOC: WOUNDCARE 15:29 | PROVIDERS: ATTEND Surgery | DX: L97.222 Non-pressure chronic ulcer of left calf with fat layer exposed (principal); I87.332 Chronic venous hypertension (idiopathic) with ulcer and inflammation of left lower extremity; E11.622 Type 2 diabetes mellitus with other skin ulcer; E11.52 Type 2 diabetes mellitus with diabetic peripheral angiopathy with gangrene; I96 Gangrene, not elsewhere classified; I89.0 Lymphedema, not elsewhere classified | CPT/HCPCS: 29581 ==

== ENCOUNTER → 2018-09-12 | Outpatient (CLI) | payer MEDICARE, MEDICAID | LOC: WOUNDCARE 15:25 | PROVIDERS: ATTEND Surgery | DX: L97.222 Non-pressure chronic ulcer of left calf with fat layer exposed (principal); I87.332 Chronic venous hypertension (idiopathic) with ulcer and inflammation of left lower extremity; E11.622 Type 2 diabetes mellitus with other skin ulcer; I89.0 Lymphedema, not elsewhere classified | CPT/HCPCS: 99212 ==

== ENCOUNTER → 2019-10-23 | Outpatient (CLI) | payer MEDICARE, MEDICAID ==
--- NOTE | 2019-10-23 20:05 | Diagnostic Imaging Report ---
INDICATION: Screening. The current study was also evaluated with a Computer Aided Detection (CAD) system. 3-D Tomographic imaging was also performed. COMPARISON is made with prior examinations of 03/29/2016, 09/03/2015, 01/15/2015. FINDINGS: There are scattered fibroglandular densities bilaterally. There are benign type calcifications in both breasts. There is no dominant mass, spiculated lesion or suspicious calcification identified. Skin, nipples and axilla are unremarkable. IMPRESSION: Category 2 benign. ACR BI-RADS Category 2: Benign findings. Result letter will be mailed to the patient. Note: At least 10% of breast cancer is not imaged by mammography. Dictated by: Dictated on workstation # [id number]
== END ==
LOC: RAD 11:30
PROVIDERS: ATTEND Pediatrics
DX: Z12.31 Encounter for screening mammogram for malignant neoplasm of breast (principal)
CPT/HCPCS: 77063; 77067

== ENCOUNTER → 2020-09-23 | Outpatient (CLI) | payer MEDICARE, MEDICAID ==
--- NOTE | 2020-09-23 12:15 | Diagnostic Imaging Report ---
INDICATION: Postmenopausal screening COMPARISON: Baseline FINDINGS: AP Spine L1-L4: [BMD (g/cm2): 0.885] [T-Score: -2.6] [Z-Score: -2.1] [BMD Previous: NA] [BMD % Change: NA] LT Hip Neck: [BMD (g/cm2): 0.626] [T-Score: -3.0] [Z-Score: -2.0] LT Hip Total: [BMD (g/cm2):0.665] [T-Score:-2.7] [Z-Score: -2.0] [BMD Previous: NA] [BMD % Change: NA] RT Hip Neck: [BMD (g/cm2):0.620] [T-Score:-3.0] [Z-Score:-2.0] RT Hip Total: [BMD (g/cm2):0.661] [T-score:-2.8] [Z-Score:-2.1] [BMD Previous:NA] [BMD % Change:NA] *Indicates significant change from prior examination based on 95% confidence level. World Health Organization criteria for BMD interpretation classify patients as Normal (T-score at or above -1.0), Osteopenic (T-score between -1.0 and -2.5) or Osteoporotic (T-score at or below -2.5). LIMITATIONS AND MODIFICATION: None. FRACTURE RISK (FRAX SCORE): The ten year probability of (%): Major Osteoporotic Fracture: [NA] Hip Fracture: [NA] IMPRESSION: 1. Osteoporosis. 2. Baseline examination. 3. See below National Osteoporosis Foundation guidelines on when to potentially initiate pharmacologic therapy. Based on the National Osteoporosis Foundation Guidelines, pharmacologic treatment should be initiated in any of the following, unless clinical conditions suggest otherwise: * Any patient with prior fragility fracture of the hip or vertebrae. A spine fracture indicates 5X risk for subsequent spine fracture and 2X risk for subsequent hip fracture. * Osteoporosis (T-score <-2.5). * Postmenopausal women and men age 50 and older with low bone mass/osteopenia (T-score between -1.0 and -2.5) by DXA and 10-year major osteoporotic fracture greater than 20% or a 10-year probability of hip fracture greater than 3%. These fracture risks are supplied above in the FRAX score, if applicable. * Clinician judgement and/or patient preferences may indicate treatment for people with 10-year fracture probabilities above or below these levels. Dictated by: Dictated on workstation # [id number]
== END ==
LOC: RAD 11:30
PROVIDERS: ATTEND Pediatrics
DX: M81.0 Age-related osteoporosis without current pathological fracture (principal); Z78.0 Asymptomatic menopausal state
CPT/HCPCS: 77080